=== PATIENT | female | born 1990 | race Caucasian/White ===

== ENCOUNTER 2017-06-09 16:22 | Inpatient (IN) | payer OTHER ==
[~2017-06-09] VITALS: Ht 162.6 cm; Wt 82.6 kg
[~2017-06-09 16:22] MED LIST: BACTROBAN OINTM22 GM TP; BENADRYL50 MG PO; BIOTIN1 MG PO; CLINDAMYCIN HC300 MG PO; CLONAZEPAM0.5 MG; CLONAZEPAM0.5 MG PO; DAILY VALUE1 EACH PO; HYDROXYZINE HCL50 MG PO; MIRTAZAPINE15 MG; MIRTAZAPINE15 MG PO; MOTRIN IB200 MG PO; MOTRIN800 MG PO; OCELLA TABLET1 EACH PO; OLANZAPINE10 MG PO; ORTHO EVRA PA1 PATCH; OXCARBAZEPINE300 MG; OXCARBAZEPINE300 MG PO; PERCOCET 5/31 TABLET PO; PRENATAL TABLE1 EAC3 PO; PROZAC20 MG PO; QUETIAPINE FUM200 MG PO; SEROQUEL200 MG PO; TYLENOL REGULA325 MG PO; VENTOLIN17 GM IH; VITAMIN B-125000 MC1 PO; VYVANSE50 MG; ZOLOFT50 MG PO; ZYRTEC10 MG PO
[2017-06-09 16:55] LABS: BASOPHIL COUNT 0.1 K/uL (0-0.1); EOSINOPHIL (%) 3.1 % (0-5); EOSINOPHIL COUNT 0.4 K/uL (0-0.3); HEMATOCRIT 43.6 % (36.0-46.0); IMMATURE GRANULOCYTE (%) 0.3 % (0.0-0.7); INSTRUMENT ABS NEUTROPHIL CT 7.1 K/uL; LYMPHOCYTE COUNT 4.6 K/uL (1.0-2.8); MCH 30.7 PG (29.0-34.0); MCHC 34.2 G/DL (30.0-36.0); MCV 89.7 FL (83-99); MEAN PLAT.VOLUME 9.6 uM^3 (9.5-12.4); MONOCYTE (%) 5.6 % (3-12); MONOCYTE COUNT 0.7 K/uL (0-0.8); NEUTROPHIL (%) 54.9 % (45-76); NEUTROPHIL COUNT 7.1 K/uL (1.8-6.4); PLATELET COUNT 332 K/uL (156-360); RBC DIS.WIDTH-CV 12.6 % (11.8-14.6); RBC DIS.WIDTH-SD 41.7 % (39-53); RED BLOOD COUNT 4.86 M/uL (3.80-5.20)
[2017-06-09 17:03] LABS: CHLORIDE 104 mEq/L (99-109); POTASSIUM 3.7 mEq/L (3.7-5.4); SODIUM 138 mEq/L (136-147)
[2017-06-09 17:05] LABS: GLUCOSE 92 mg/dL (70-99)
[2017-06-09 17:06] LABS: ANION GAP 10 MEQ/L (2-14)
[2017-06-09 17:08] LABS: SERUM ETHYL ALCOHOL < 10 mg/dL
[2017-06-09 17:09] LABS: GFR ESTIMATE (CALCULATED) > 59 mL/min/
[2017-06-09 17:11] LABS: UREA NITROGEN (BUN) 12 mg/dL (9-23)
[2017-06-09 17:12] LABS: SALICYLATE < 5.0 MG/DL (15-30)
[2017-06-09 17:16] LABS: ADD MIUA? YES; BILIRUBIN NEGATIVE; BLOOD NEGATIVE; COLOR AMBER ((YELLOW)); GLUCOSE (STRIP) NEGATIVE; KETONES 5; LEUKOCYTES NEGATIVE; NITRITE NEGATIVE; PROTEIN (STRIP) 30; SPECIFIC GRAVITY 1.029 (1.000-1.030)
[2017-06-09 17:18] LABS: INTERNAL CONTROL VALID? YES
[2017-06-09 17:22] LABS: BACTERIA RARE /HPF; EPITHELIAL CELLS 1+ /HPF; MUCUS 1+ /LPF; UCUL ADDED? NO; WHITE BLOOD CELLS 0-5 /HPF (0-5)
[2017-06-09 17:26] LABS: AMPHETAMINE PRESUMPTIVE POSITIVE (500 ng/mL); BARBITURATES NEGATIVE (200 ng/mL); BENZODIAZEPINES NEGATIVE (150 ng/mL); COCAINE NEGATIVE (150 ng/mL); INTERNAL CONTROLS VALID? YES; METHADONE NEGATIVE (200 ng/mL); METHAMPHETAMINE NEGATIVE (500 ng/mL); OPIATES (MORPHINE) NEGATIVE (100 ng/mL); OXYCODONE NEGATIVE (100 ng/mL); PHENCYCLIDINE NEGATIVE (25 ng/mL); PROPOXYPHENE NEGATIVE (300 ng/mL); THC CANNABINOIDS PRESUMPTIVE POSITIVE (50 ng/mL); TRICYCLIC ANTIDEPRESSANTS NEGATIVE (300 ng/mL)
[2017-06-09 17:27] LABS: ADD MEDTOX COMMENT Y
[2017-06-09] MEDS ORDERED: VYVANSE70 MG PO ×3 (23:28→23:33)
[2017-06-09] MEDS ORDERED: ADDERALL10 MG PO (23:33)
[2017-06-09] MEDS ORDERED: LATUDA20 MG PO (23:34)
[2017-06-09] MEDS ORDERED: ZOLOFT100 MG PO (23:34)
[2017-06-10 07:57] VITALS: BP 125/56
[2017-06-10 15:21] VITALS: BP 130/79
[2017-06-11 07:43] VITALS: BP 121/86
[2017-06-11] MEDS ORDERED: DIVALPROEX SOD250 MG PO (09:58)
[2017-06-11] MEDS ORDERED: GEODON40 MG PO (09:58)
== END 2017-06-11 10:15 | disposition left against medical advice (07) | DRG 885 ==
LOC: EME 16:22 → EDOF 20:38 → 1WEST 20:38
PROVIDERS: Emergency Medicine
DX: F31.64 Bipolar disorder, current episode mixed, severe, with psychotic features (principal); R45.851 Suicidal ideations; F60.9 Personality disorder, unspecified; F12.10 Cannabis abuse, uncomplicated; F90.9 Attention-deficit hyperactivity disorder, unspecified type; J45.909 Unspecified asthma, uncomplicated; G43.909 Migraine, unspecified, not intractable, without status migrainosus; Z56.0 Unemployment, unspecified; Z87.891 Personal history of nicotine dependence
CPT/HCPCS: 80048; 81003; 84702; 84703; 84999; 85025; 90839; 97150 GO; 99281; 99285; G0480

== ENCOUNTER 2018-01-07 16:56 | Emergency (ER) | payer OTHER ==
[~2018-01-07] VITALS: Ht 165.1 cm; Wt 90.9 kg
[~2018-01-07 16:56] MED LIST changes: +ADDERALL10 MG PO; +DIVALPROEX SOD250 MG PO; +GEODON40 MG PO; +LATUDA20 MG PO; +VYVANSE70 MG PO; +ZOLOFT100 MG PO
[2018-01-07] MEDS ORDERED: MOTRIN600 MG PO (18:16)
[2018-01-07 18:50] VITALS: BP 120/68
== END 2018-01-07 19:01 | disposition home or self-care (01) ==
LOC: EME 16:56
DX: S93.402A Sprain of unspecified ligament of left ankle, initial encounter (principal); S93.401A Sprain of unspecified ligament of right ankle, initial encounter; W10.9XXA Fall (on) (from) unspecified stairs and steps, initial encounter; Z88.5 Allergy status to narcotic agent; Z88.2 Allergy status to sulfonamides; Z88.1 Allergy status to other antibiotic agents; Z88.0 Allergy status to penicillin; Z91.048 Other nonmedicinal substance allergy status
CPT/HCPCS: 73610; 99281; 99284